=== PATIENT | female | born 1935 | race Caucasian/White ===

== ENCOUNTER 2016-10-29 22:20 | Emergency (ER) | payer MEDICARE, OTHER ==
[~2016-10-29] VITALS: Ht 157.5 cm; Wt 53.6 kg
[~2016-10-29 22:20] MED LIST: ABILIFY5 MG; ACETAMINOPHEN325 M1 PO; ACID CONTROL150 MG PO; AMLODIPINE BESYL5 MG PO; ASPIRIN EC81 MG PO; ATORVASTATIN CA40 MG PO; CALCIUM + VITA1 EACH PO; CEFDINIR300 MG PO; CITRATE OF MAG300 ML PO; CITROMA296 ML; DOXEPIN HCL50 MG PO; DULCOLAX10 MG PR; DURAGESIC1 EAC1 TD; FLEET ENEMA133 ML; FLEET ENEMA133 ML PR; FLUOXETINE HCL10 MG PO; FUROSEMIDE20 MG PO; IBUPROFEN600 MG PO; L-ARGININE1000 MG PO; LANSOPRAZOLE30 MG PO; LEVAQUIN500 MG PO; LIDOCAINE 5% IN2 ML XX; LIPITOR40 MG PO; MACUVITE EYE C1 EACH PO; MACUVITE TABLE1 EACH PO; MAGNESIUM OXID400 MG PO; MILK OF MA400 MG/5 M PO; MULTIVITAMINS1 EAC7 PO; NAPROSYN375 MG PO; NAPROXEN375 MG PO; NITROSTAT0.4 MG SL; NORCO 5-325 TA1 EACH PO; NORCO 7.5-3251 EACH PO; NORVASC5 MG PO; OMEGA-3100 MG PO; OXAYDO5 MG PO; PERMETHRIN1 GM MISC; POLYETHYLENE GL17 GM PO; POTASSIUM CHLO20 ME1 PO; PROZAC10 MG PO; PROZAC20 MG PO; PYRIDIUM200 MG PO; REFRESH LIQUIGE15 ML OU; RESTORIL30 MG PO; RULOX SUSPENSI355 ML PO; SENNA S TABLET1 EA PO; SUPER OMEGA-31000 MG PO; SYSTANE ULTRA 010 ML OU; TEMAZEPAM15 MG PO; TRAMADOL HCL50 MG PO; TUMS200 MG PO; VITAMIN B-121000 MCG PO; VITAMIN C WITH500 MG PO; VITAMIN C500 M1 PO; ZOFRAN ODT8 MG PO
[2016-10-29] MEDS ORDERED: LEXAPRO10 MG PO (22:34)
[2016-10-29] MEDS ORDERED: MACUVITE EYE C1 EACH PO (22:35)
[2016-10-29] MEDS ORDERED: SENNA-TIME S T1 EACH PO (22:39)
[2016-10-29] MEDS ORDERED: ONDANSETRON ODT4 MG PO (22:39)
== END 2016-10-30 01:52 | disposition home or self-care (01) ==
LOC: ED 22:20
DX: K52.9 Noninfective gastroenteritis and colitis, unspecified (principal); I25.2 Old myocardial infarction; I48.91 Unspecified atrial fibrillation; I10 Essential (primary) hypertension; K21.9 Gastro-esophageal reflux disease without esophagitis; Z90.49 Acquired absence of other specified parts of digestive tract; Z90.710 Acquired absence of both cervix and uterus; Z96.641 Presence of right artificial hip joint; Z79.82 Long term (current) use of aspirin; Z79.899 Other long term (current) drug therapy
CPT/HCPCS: 36415; 80053; 81001; 85025; 96361; 96374; 99283; J2405; J7030

== ENCOUNTER 2017-01-04 07:21 | Emergency (ER) | payer MEDICARE, OTHER ==
[~2017-01-04] VITALS: Ht 157.5 cm; Wt 53.5 kg
[~2017-01-04 07:21] MED LIST changes: +LEXAPRO10 MG PO; +ONDANSETRON ODT4 MG PO; +SENNA-TIME S T1 EACH PO
[2017-01-04] MEDS ORDERED: MACRODANTIN100 MG PO (08:13)
== END 2017-01-04 08:31 | disposition home or self-care (01) ==
LOC: ED 07:21
DX: N39.0 Urinary tract infection, site not specified (principal); I25.2 Old myocardial infarction; I11.0 Hypertensive heart disease with heart failure; I48.91 Unspecified atrial fibrillation; K21.9 Gastro-esophageal reflux disease without esophagitis; I50.9 Heart failure, unspecified; Z95.5 Presence of coronary angioplasty implant and graft; Z90.49 Acquired absence of other specified parts of digestive tract; Z90.89 Acquired absence of other organs; Z90.710 Acquired absence of both cervix and uterus; Z96.641 Presence of right artificial hip joint; Z79.82 Long term (current) use of aspirin; Z79.899 Other long term (current) drug therapy
CPT/HCPCS: 81001; 99283

== ENCOUNTER 2017-01-04 09:42 | Emergency (ER) | payer MEDICARE, OTHER ==
[~2017-01-04 09:42] MED LIST changes: +MACRODANTIN100 MG PO
== END 2017-01-04 10:00 | disposition left against medical advice (07) ==
LOC: ED 09:42
DX: M25.531 Pain in right wrist (principal); Z53.21 Procedure and treatment not carried out due to patient leaving prior to being seen by health care provider
CPT/HCPCS: 87077; 87088; 87186

== ENCOUNTER 2017-01-04 12:08 | Emergency (ER) | payer MEDICARE, OTHER ==
[~2017-01-04] VITALS: Ht 157.5 cm; Wt 53.5 kg
--- NOTE | 2017-01-04 14:07 | NUR ---
PT IS A RESIDENT OF [facility]. SHE HAD 2 OTHER VISITS TO ED TODAY BEFORE THIS VISIT. ED CALLED AND TOLD ME SHE HAD PASSED. I CAME AND CARED FOR HER SON BERONICA. HE SEEMED AT [place] MUCH POSSIBLE. HE SHARED WITH ME HIS FAVORITE MEMORIES AND SAID HE WAS READY TO GO. HE DECIDED ON [employer] FOR ARRANGEMENTS WITH [employer] AND HE WANTED TO HONOR HER WISHES TO BE A DONOR. HE SIGNED RELEASING HER BODY, AND I GAVE HIM CONTACT INFO. HE THANKED ME FOR HELPING, SHOOK MY HAND AND THEN LEFT TO RETRIEVE HER BELONGINGS FROM [facility]. HE TOLD ME HER B.DAY IS THE , AND THAT SHE WAS TO BE NEXT MONTH. WE HAD PRAYER TOGETHER, GOD BLESS HIM. I CONTACTED [employer] [facility] TO CARE FOR THE PT
== END 2017-01-04 14:45 ==
LOC: ED 12:08
DX: I25.2 Old myocardial infarction; I11.0 Hypertensive heart disease with heart failure; I50.9 Heart failure, unspecified; I48.91 Unspecified atrial fibrillation; K21.9 Gastro-esophageal reflux disease without esophagitis; Z95.5 Presence of coronary angioplasty implant and graft; Z90.49 Acquired absence of other specified parts of digestive tract; Z90.710 Acquired absence of both cervix and uterus; Z90.89 Acquired absence of other organs; Z96.641 Presence of right artificial hip joint; Z79.82 Long term (current) use of aspirin; Z79.899 Other long term (current) drug therapy
CPT/HCPCS: 71010; 73110; 87077; 87088; 87186; 99283